=== PATIENT | female | born 1955 | race American Indian/Alaskan Native ===

== ENCOUNTER 2021-10-01 10:56 | Emergency (ER) | payer SELFPAY ==
--- NOTE | 2021-10-01 11:52 | Emergency Department Report ---
ED Female HPI - General Chief complaint: Back Pain/Injury Stated complaint: LFT SIDE PAIN Time Seen by Provider: 10/01/21 10:59 Source: patient Mode of arrival: Ambulatory Limitations: No Limitations - History of Present Illness Initial comments: 65-year-old -[place] female presents to the emergency room complaining of left flank pain, urinary urgency and frequency. She denies any vaginal discharge or vaginal bleeding. She does complain of pelvic pain. She states she took ibuprofen yesterday and it helped. She has a past medical history of fatty liver disease and hypothyroidism. MD Complaint: pelvic pain Onset/Timin -: days(s) Location: suprapubic Radiation: L flank Severity scale (0 -10): 6 Quality: sharp, dull Consistency: constant Improves with: none Worsens with: none Are you Now?: No Associated Symptoms: denies: vaginal discharge, vaginal bleeding, nausea/vomiting, fever/chills, loss of appetite, hematuria - Related Data Previous Rx's Medication Instructions Recorded Last Taken Type HYDROcodone/APAP 7.5-325 [[place] Barge 1 each PO Q8HR PRN #12 tablet 10/01/21 Unknown Rx 7.5/325] Ketorolac [Toradol] 10 mg PO Q6H PRN #20 10/01/21 Unknown Rx Tamsulosin [Flomax] 0.4 mg PO QDAY #5 cap 10/01/21 Unknown Rx Allergies Allergy/AdvReac Type Severity Reaction Status Date / Time No Known Allergies Allergy Unverified 10/01/21 10:56 ED Review of Systems ROS: Stated complaint: LFT SIDE PAIN Other details as noted in HPI Comment: All other systems reviewed and negative ED Past Medical Hx - Past Medical History Previous Medical History?: Yes Hx Liver Disease: Yes (fatty) Additional medical history: fatty liver disease - Surgical History Past Surgical History?: Yes Hx Cholecystectomy: Yes Additional Surgical History: - Medications Home Medications: Home Medications Medication Instructions Recorded Confirmed Last Taken Type HYDROcodone/APAP 7.5-325 [[place] 1 each PO Q8HR PRN #12 tablet 10/01/21 Unknown Rx 7.5/325] Ketorolac [Toradol] 10 mg PO Q6H PRN #20 10/01/21 Unknown Rx Tamsulosin [Flomax] 0.4 mg PO QDAY #5 cap 10/01/21 Unknown Rx ED Physical Exam - General Limitations: No Limitations General appearance: alert, in no apparent distress - Head Head exam: Present: atraumatic, normocephalic - Eye Eye exam: Present: normal appearance - ENT ENT exam: Present: mucous membranes moist - Neck Neck exam: Present: normal inspection - Respiratory Respiratory exam: Present: normal lung sounds bilaterally. Absent: respiratory distress - Cardiovascular Cardiovascular Exam: Present: regular rate, normal rhythm. Absent: systolic murmur, diastolic murmur, rubs, gallop - GI/Abdominal GI/Abdominal exam: Present: soft, normal bowel sounds - Extremities Exam Extremities exam: Present: normal inspection - Back Exam Back exam: Present: normal inspection, full ROM, CVA tenderness (L) - Neurological Exam Neurological exam: Present: alert, oriented X3, normal gait - Psychiatric Psychiatric exam: Present: normal affect, normal mood - Skin Skin exam: Present: warm, dry, intact, normal color. Absent: rash ED Course Vital Signs 10/01/21 11:05 Temperature 98 F Pulse Rate 87 Respiratory 20 Rate Blood Pressure 118/51 [Right] O2 Sat by Pulse 98 Oximetry ED Medical Decision Making - Radiology Data Radiology results: report reviewed Study Comments [facility] [address] [place] [address] XRay Report Signed Patient: CHELLE VASQUEZ MR#: [id number] 221 : 1955 Acct:[id number] Age/Sex: 65 / F ADM Date: 10/01/21 Loc: ED Attending Dr: Ordering Physician: LARON SALGADO Date of Service: 10/01/21 Procedure(s): XR abdomen 1V ap Accession Number(s): [id number] cc: LARON SALGADO Fluoro Time In Minutes: ABDOMEN 1 VIEW(S) INDICATION / CLINICAL INFORMATION: left flank pain.. COMPARISON: None available. FINDINGS: TUBES / LINES: None. BOWEL GAS PATTERN/EXTRALUMINAL GAS: No significant abnormality. No pneumatosis or secondary signs of free air. ADDITIONAL FINDINGS: Cholecystectomy clips. Density projecting over the upper pole of the right kidney. Multiple phleboliths are noted in the pelvis. IMPRESSION: 1. Density projecting over the upper pole of the right kidney could represent a stone. Otherwise, no acute abnormality. Signer Name: Manoj Ziegler MD Signed: 10/01/2021 12:26 PM Workstation Name: [id number] [facility] [address] [id number] Cat Scan Report Signed Patient: CHELLE VASQUEZ MR#: [id number] 221 : 1955 Acct:[id number] Age/Sex: 65 / F ADM Date: 10/01/21 Loc: ED Attending Dr: Ordering Physician: LARON SALGADO Date of Service: 10/01/21 Procedure(s): CT abdomen pelvis wo con Accession Number(s): [id number] cc: LARON SALGADO CT ABDOMEN AND PELVIS WITHOUT CONTRAST INDICATION / CLINICAL INFORMATION: pelvic and flank pain. TECHNIQUE: Axial CT images were obtained through the abdomen and pelvis without IV contrast. All CT scans at this location are performed using CT dose reduction for ALARA by means of automated exposure control. COMPARISON: Radiographs performed earlier in the day FINDINGS: LOWER CHEST: No significant abnormality. LIVER: No significant abnormality. GALLBLADDER: Cholecystectomy. BILE DUCTS: No significant abnormality. PANCREAS: No significant abnormality. SPLEEN: No significant abnormality. ADRENALS: No significant abnormality. RIGHT KIDNEY / URETER: No significant abnormality. LEFT KIDNEY / URETER: 3 mm stone at the left ureteral orifice at the UVJ resulting in mild upstream left hydroureteronephrosis. No additional stone seen in the left kidney. STOMACH / SMALL BOWEL: Small hiatal hernia. Small bowel is nondilated. COLON: No significant abnormality. APPENDIX: No significant abnormality. PERITONEUM: No free fluid. No free air. No fluid collection. LYMPH NODES: No significant adenopathy. AORTA / ARTERIES: No significant abnormality. IVC / VEINS: No significant abnormality. URINARY BLADDER: No significant abnormality. REPRODUCTIVE ORGANS: No significant abnormality. ADDITIONAL FINDINGS: None. SKELETAL SYSTEM: No significant abnormality. IMPRESSION: 1. Obstructing 3 mm stone at the left UVJ resulting in mild upstream left hydroureteronephrosis. Signer Name: Manoj Ziegler MD Signed: 10/01/2021 3:47 PM Workstation Name: [id number] Transcribed By: DB Dictated By: MANOJ ZIEGLER MD Electronically Authenticated By: MANOJ ZIEGLER MD Signed Date/Time: 10/01/21 1547 DD/ 1543 TD/TT: - Medical Decision Making 65-year-old -[place] female presents to the emergency room complaining of left flank pain, urinary urgency and frequency. She denies any vaginal discharge or vaginal bleeding. She does complain of pelvic pain. She states she took ibuprofen yesterday and it helped. She has a past medical history of fatty liver disease and hypothyroidism. Urinalysis, KUB ordered. CT scan shows a 3 mm stone in the left UVJ with mild hydronephrosis. Patient was given fluids. She will be discharged home on Flomax Toradol and La Barge. Discussed with patient that she may see the stone when she voids. Discussed the patient she needs to follow-up with a urologist I have listed 1 below for her convenience. Critical care attestation.: If time is entered above; I have spent that time in minutes in the direct care of this critically ill patient, excluding procedure time. ED Disposition Clinical Impression: Calculus of left kidney Disposition: HOME / SELF CARE / HOMELESS Is pt being admited?: No Does the pt Need Aspirin: No Condition: Stable Instructions: Renal Colic, [id number], Kidney Stones, [id number] Additional Instructions: CT scan shows you have a small 3 mm kidney stone on the left kidney. Please take pain medication as needed. Be sure not to operate heavy machinery while taking [place] Bar[place]. Be sure to increase your fluid intake. Follow-up with a urologist I have listed 1 below for your convenience. Return back to the emergency room if worsening pain bleeding with urination fever uncontrollable nausea vomiting. Prescriptions: Tamsulosin [Flomax] 0.4 mg PO QDAY #5 cap HYDROcodone/APAP 7.5-325 [[place] 7.5/325] 1 each PO Q8HR PRN #12 tablet PRN Reason: Pain Ketorolac [Toradol] 10 mg PO Q6H PRN #20 PRN Reason: Pain Referrals: PRIMARY CAREMD [Primary Care Provider] - 3-5 Days NATA KAY MD [Staff Physician] - 3-5 Days Forms: Work/School Release Form(ED) Time of Disposition: 16:08
[2021-10-01 12:22] LABS: Bilirubin,Urine NEG (Negative); Blood,Urine LG (Negative); Color,Urine Yellow (Yellow); Mucus,Urine FEW /HPF; Protein,Urine <15 mg/dL mg/dL (Negative); Urobilinogen,Urine < 2.0 mg/dL (<2.0)
--- NOTE | 2021-10-01 12:30 | XRay Report ---
ABDOMEN 1 VIEW(S) INDICATION / CLINICAL INFORMATION: left flank pain.. COMPARISON: None available. FINDINGS: TUBES / LINES: None. BOWEL GAS PATTERN/EXTRALUMINAL GAS: No significant abnormality. No pneumatosis or secondary signs of free air. ADDITIONAL FINDINGS: Cholecystectomy clips. Density projecting over the upper pole of the right kidne y. Multiple phleboliths are noted in the pelvis. IMPRESSION: 1. Density projecting over the upper pole of the right kidney could represent a stone. Otherwise, no acute abnormality. Signer Name: Manoj Ziegler MD Signed: 10/01/2021 12:26 PM Workstation Name: [id number]
[2021-10-01] MEDS ORDERED: KETOROLAC 30 MG/1 ML INJ IM ONE (12:41)
[2021-10-01] MEDS ORDERED: SODIUM CHLORIDE 0.9% 1000 ML 1,000 ML IV ONE (12:43)
[2021-10-01] MEDS ORDERED: KETOROLAC 30 MG/1 ML INJ IV ONE (13:04)
--- NOTE | 2021-10-01 15:52 | Cat Scan Report ---
CT ABDOMEN AND PELVIS WITHOUT CONTRAST INDICATION / CLINICAL INFORMATION: pelvic and flank pain. TECHNIQUE: Axial CT images were obtained through the abdomen and pelvis without IV contrast. All CT scans at this location are performed using CT dose reduction for ALARA by means of automated exposure control. COMPARISON: Radiographs performed earlier in the day FINDINGS: LOWER CHEST: No significant abnormality. LIVER: No significant abnormality. GALLBLADDER: Cholecystectomy. BILE DUCTS: No significant abnormality. PANCREAS: No significant abnormality. SPLEEN: No significant abnormality. ADRENALS: No significant abnormality. RIGHT KIDNEY / URETER: No significant abnormality. LEFT KIDNEY / URETER: 3 mm stone at the left ureteral orifice at the UVJ resulting in mild upstream l eft hydroureteronephrosis. No additional stone seen in the left kidney. STOMACH / SMALL BOWEL: Small hiatal hernia. Small bowel is nondilated. COLON: No significant abnormality. APPENDIX: No significant abnormality. PERITONEUM: No free fluid. No free air. No fluid collection. LYMPH NODES: No significant adenopathy. AORTA / ARTERIES: No significant abnormality. IVC / VEINS: No significant abnormality. URINARY BLADDER: No significant abnormality. REPRODUCTIVE ORGANS: No significant abnormality. ADDITIONAL FINDINGS: None. SKELETAL SYSTEM: No significant abnormality. IMPRESSION: 1. Obstructing 3 mm stone at the left UVJ resulting in mild upstream left hydroureteronephrosis. Signer Name: Manoj Ziegler MD Signed: 10/01/2021 3:47 PM Workstation Name: [id number]
[2021-10-01 16:30] VITALS: BP 136/62
== END 2021-10-01 16:30 | disposition home or self-care (01) ==
LOC: ED 10:56
DX: N20.0 Calculus of kidney (principal); Z90.49 Acquired absence of other specified parts of digestive tract
CPT/HCPCS: 74018; 74176; 81001; 87086; 96361; 96374; 99284; J1885; J7030; Q0162